=== PATIENT | male | born 1970 | race African-American/Black ===

== ENCOUNTER 2022-10-12 03:23 | Emergency (ER) | payer OTHER, SELFPAY ==
--- NOTE | ~2022-10-12 | XR_ITS ---
EXAMINATION: XR chest 2V DATE: 10/12/2022 06:30 INDICATION: Pleuritic chest pain. TECHNIQUE: Frontal and lateral views of the chest were obtained. COMPARISON: Chest single view 06/03/2017, CT abdomen and pelvis 04/12/2017 FINDINGS: The chest demonstrates clear lungs without pneumonia, pleural effusion, or pneumothorax. Th e heart size is normal. IMPRESSION: 1. No acute cardiopulmonary disease. Reviewed, dictated and finalized at location A. CORRECTIONS
--- NOTE | 2022-10-12 03:29 | ECG_ITS ---
Measurements Intervals [place] Rate: 68 P: 63 DE: 166 QRS: 62 QRSD: 157 T: 29 QT: 402 QTc: 428 Interpretive Statements SINUS RHYTHM RIGHT BUNDLE BRANCH BLOCK [120+ ms QRS DURATION, UPRIGHT V1, 40+ ms S IN I/aVL/V4/V5/V6] NO PREVIOUS ECG AVAILABLE FOR COMPARISON Electronically Signed On 10-12-2022 8:41:31 [employer] by Ken Singleton M.D.
[2022-10-12 03:32] VITALS: BP 163/98; PULSE 71; RESP 16; TEMP 36.3; O2SAT 100
[2022-10-12 05:46] VITALS: BP 152/100; PULSE 69; RESP 16; O2SAT 100
[2022-10-12] MEDS: KETOROLAC (*BKC) 60 MG/2 ML VIAL IM (05:48)
--- NOTE | 2022-10-12 06:23 | ED.BACK ---
HPI - Back Pain/Injury General Chief Complaint: Back Pain/Injury Stated Complaint: upper back pain, radiates to chest Time Seen by Provider: 10/12/22 05:35 History of Present Illness HPI Narrative: Patient is a 52-year-old male who presents ER with left-sided thoracic back pain. Radiates around to his chest. Ongoing for 2 days. Improved yesterday but came back again stronger tonight. Worse when he raises his hand above his head and make certain movements of the body. No runny nose or sore throat or productive cough. No pain with deep breath. Has not tried any pain medication. Denies numbness or tingling down the arm or legs. Related Data Allergies Allergy/AdvReac Type Severity Reaction Status Date / Time No Known Allergies Allergy Verified 10/12/22 05:48 Review of Systems Review of Systems: All systems reviewed & are unremarkable except as noted in HPI and below Constitutional: Constitutional: Denies chills, Denies fatigue and Denies fever(s) ENT: Denies nasal congestion and Denies sore throat Cardiovascular: Cardiovascular: Denies chest pain, Denies rapid heart rate and Denies radiating jaw, neck or arm pain Respiratory: Respiratory: Denies cough, Denies dyspnea and Denies wheezing Musculoskeletal: Musculoskeletal: Reports back pain, Denies arthralgias and Denies joint swelling PMFSH Past Medical History Medical History (Updated 10/12/22 @ 06:56 by Rosalio Vaughan MD) Hypertension Surgical History Surgical History (Updated 10/12/22 @ 06:25 by Rosalio Vaughan MD) H/O shoulder surgery Right Exam Narrative: GENERAL: Well-appearing, well-nourished, and in no acute distress. HEAD: Normocephalic, atraumatic. EYES: PERRL and EOMI. CHEST: Clear to auscultation. No respiratory distress. HEART: Regular rate and rhythm. Normal peripheral pulses. Back: No reproducible midline tenderness of T/L-spine. There is paraspinal muscle tenderness on the left side thoracic spine region of the scapula and inferior to the scapula. Pain is increased by lifting the arm and hand above the shoulder. EXTREMITIES: Normal range of motion. No edema. SKIN: Warm, dry, no rash. NEURO: No focal deficits. Alert and oriented x3. PSYCH: Normal mood and affect. Course Course Emergency Course: Patient resting comfortably. Informed of results. Discharge home. Vital Signs Vital signs: Vital Signs Temperature 97.4 F L 10/12/22 03:32 Pulse Rate 71 10/12/22 03:32 Respiratory Rate 16 10/12/22 03:32 Blood Pressure 163/98 H 10/12/22 03:32 Pulse Oximetry 100 10/12/22 03:32 Oxygen Delivery Room Air 10/12/22 03:32 Temperature 97.4 F L 10/12/22 03:32 Pulse Rate 69 10/12/22 05:46 Respiratory Rate 16 10/12/22 05:46 Blood Pressure 152/100 H 10/12/22 05:46 Pulse Oximetry 100 10/12/22 05:46 Oxygen Delivery Room Air 10/12/22 03:32 MDM - Back Pain/Injury Imaging Data Radiologist's impression: ITS Impressions Chest X-Ray 10/12/22 06:41 IMPRESSION: 1. No acute cardiopulmonary disease. ECG Data EKG #1: ECG completion date: 10/12/22 ECG completion time: 03:31 EKG Interpretation: normal rate (68), sinus rhythm and RBBB Discharge Plan Discharge Clinical Impression: Back strain Patient Disposition: Home, Self-Care Condition: Stable Instructions: Thoracic Back Strain (ED) Additional Instructions: Return to the ER if you have increased pain in your back, you develop lower extremity weakness/numbness/paralysis, you have numbness or tingling in your private parts, or you are unable to control your ability to urinate/stool. Prescriptions: New cyclobenzaprine 10 mg tablet 10 mg PO TID PRN (Reason: muscle spasm) Qty: 20 0RF naproxen 375 mg tablet 375 mg PO BID Qty: 14 0RF Follow-up/Referrals: PHYSICIAN NOT ON STAFF,NONSTAFF [Primary Care Provider] - 1 Week
== END 2022-10-12 07:05 | disposition home or self-care (01) ==
PROVIDERS: Emergency Provider Emergency Medicine
DX: S29.012A Strain of muscle and tendon of back wall of thorax, initial encounter (principal); I10 Essential (primary) hypertension; X58.XXXA Exposure to other specified factors, initial encounter
CPT/HCPCS: 71046; 93005; 96372; 99283; J1885